=== PATIENT | male | born 1960 | race Caucasian/White ===

== ENCOUNTER 2016-09-29 14:05 | Emergency (ER) | payer MEDICAID, OTHER ==
[~2016-09-29 14:05] MED LIST: ALPR1TAB3 PO; CITA40TA4 PO; MIRT45TA PO
[2016-09-29 14:10] VITALS: PULSE 87; RESP 20; TEMP 98.3; O2SAT 95
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
== END 2016-09-29 15:36 | disposition home or self-care (01) ==
LOC: NEPB 14:05
DX: Z48.02 Encounter for removal of sutures (principal); Z72.0 Tobacco use; S61.512A Laceration without foreign body of left wrist, initial encounter; S61.511A Laceration without foreign body of right wrist, initial encounter; S21.112A Laceration without foreign body of left front wall of thorax without penetration into thoracic cavity, initial encounter; X78.1XXA Intentional self-harm by knife, initial encounter
CPT/HCPCS: 99281

== ENCOUNTER 2017-07-14 11:50 | Emergency (ER) | payer SELFPAY ==
[2017-07-14 11:51] VITALS: BP 129/80; PULSE 110; RESP 16; TEMP 98.4; O2SAT 97
--- NOTE | 2017-07-14 12:29 | PD ---
HPI Chief Complaint: Musculoskeletal Complaint Time Seen by Provider: 12:11 Travel History International Travel<30 days: No Contact w/Intl Traveler<30days: No History of Present Illness HPI 56-year-old male presents to emergency department with right ankle pain for 2-3 days. Patient states that his right ankle has been tender over the anterior aspect of the ankle that increases with movement and decreases with rest. Patient states that it feels aching especially with walking. Patient says that the aching is mild. He has limited range of motion secondary to pain. States he may also have occasional tingling of the area but denies numbness. Patient denies new footwear or history of ankle injuries. Patient denies trauma, history of gout. States he has been using Aleve for his pain without significant relief. Patient has a history depression and is on multiple medications for this. Patient denies recent travel, surgeries, fractures, or blood disorders. Patient does not have a primary care physician currently. PFSH Past Medical History Anxiety: Yes Depression: Yes Diminished Hearing: No Tetanus Vaccination: < 5 Years Past Surgical History Other Surgery: Yes (HERNIA, VASECTOMY) Social History Alcohol Use: No (26 YRS IN RECOVERY) Tobacco Use: Yes Substance Use: No Allergies-Medications (Allergen,Severity, Reaction): Coded Allergies: iodine (Unverified Allergy, Intermediate, facial and throat swelling , ) potassium iodide (Unverified Allergy, Intermediate, facial and throat swelling , 03/09/17) povidone-iodine (Unverified Allergy, Intermediate, facial and throat swelling , 03/09/17) sodium iodide (Unverified Allergy, Intermediate, facial and throat swelling , 03/09/17) sodium iodide (Unverified Allergy, Intermediate, facial and throat swelling , 03/09/17) Reported Meds & Prescriptions Reported Meds & Active Scripts Active Reported Mirtazapine 45 Mg Tab 45 Mg PO HS Citalopram (Citalopram Hydrobromide) 40 Mg Tab 40 Mg PO DAILY Alprazolam 1 Mg Tab 1 Mg PO Q6H PRN Review of Systems Except as stated in HPI: all other systems reviewed are Neg Physical Exam Narrative GENERAL: Well-nourished, well-developed patient. SKIN: Focused skin assessment warm/dry. HEAD: Normocephalic. EYES: No scleral icterus. No injection or drainage. NECK: Supple, trachea midline. No JVD or lymphadenopathy. CARDIOVASCULAR: Regular rate and rhythm without murmurs, gallops, or rubs. RESPIRATORY: Breath sounds equal bilaterally. No accessory muscle use. MUSCULOSKELETAL: No cyanosis, or edema. Right ankle-TTP over anterior talofibular ligaments. No evidence of trauma. Skin intact. No erythema or edema. Limited range of motion with flexion secondary to pain. Neurovascularly intact. BACK: Nontender without obvious deformity. No CVA tenderness. Data Data Last Documented VS Vital Signs Date Time Temp Pulse Resp B/P (MAP) Pulse Ox O2 Delivery O2 Flow Rate FiO2 07/14/17 11:51 98.4 110 16 129/80 (96) 97 Orders Orders Ankle, Limited (Ap&Lat) (07/14/17 ) Support Splint (07/14/17 12:52) Ed Discharge Order (07/14/17 12:53) MDM Medical Decision Making Medical Screen Exam Complete: Yes Emergency Medical Condition: Yes Differential Diagnosis Right ankle sprain, strain, arthritis, fracture Narrative Course 56-year-old male presents to emergency department with right ankle pain for 2-3 days. Patient states that his right ankle has been tender over the anterior aspect of the ankle that increases with movement and decreases with rest. Patient states that it feels aching especially with walking. Patient says that the aching is mild. He has limited range of motion secondary to pain. States he may also have occasional tingling of the area but denies numbness. Patient denies new footwear or history of ankle injuries. Patient denies trauma, history of gout. States he has been using Aleve for his pain without significant relief. Patient has a history depression and is on multiple medications for this. Patient denies recent travel, surgeries, fractures, or blood disorders. Patient does not have a primary care physician currently. Vital signs stable Physical exam consistent with sprain versus strain. X-ray demonstrates no acute process. Stirrup splint applied. Advised patient to use RICE. Advised he rests the ankle. Patient given [employer]ent information. Advised to follow-up within 2-3 days. Advised to return to emergency department for worsening or persistent symptoms. Diagnosis Primary Impression: Ankle strain Qualified Codes: S96.911A - Strain of unspecified muscle and tendon at ankle and foot level, right foot, initial encounter Patient Instructions: Ankle Strain (ED), General Instructions Additional Instructions: Use ice or heat for symptom relief. He may use the stirrup splint when symptomatic. If symptoms persist or worsen, return to the emergency department. Follow up with your primary care physician within 2 days. Disposition: 01 DISCHARGE HOME Condition: Stable Fabi Nicole Jul 14, 2017 12:29
--- NOTE | 2017-07-14 12:50 | RADRPT ---
EXAM DATE/TIME: 07/14/2017 12:19 [facility] COMPARISON: No previous studies available for comparison. INDICATIONS : Right ankle pain x 4 days no known injury all pain on lateral side MEDICAL HISTORY : None. SURGICAL HISTORY : None. ENCOUNTER: Initial ACUITY: 1 day PAIN SCORE: 9/10 LOCATION: Right Ankle. FINDINGS: Two view examination was performed of the right ankle. The bony structures are in normal alignment. No evidence of fracture, dislocation, or soft tissue swelling. No radiopaque foreign bodies are see n. Bony mineralization is normal. CONCLUSION: 1. No acute findings. Tam Hunter MD on July 14, 2017 at 12:47 Board Certified Radiologist. This report was verified electronically.
== END 2017-07-14 13:04 | disposition home or self-care (01) ==
LOC: NEPK 11:50
DX: S96.911A Strain of unspecified muscle and tendon at ankle and foot level, right foot, initial encounter (principal); F32.9 Major depressive disorder, single episode, unspecified; F41.9 Anxiety disorder, unspecified; Z72.0 Tobacco use; Z79.899 Other long term (current) drug therapy; Z91.041 Radiographic dye allergy status; X58.XXXA Exposure to other specified factors, initial encounter; Y93.01 Activity, walking, marching and hiking
CPT/HCPCS: 29515; 73600; 99284; L1906

== ENCOUNTER 2017-07-18 13:55 | Emergency (ER) | payer SELFPAY ==
[2017-07-18 14:01] VITALS: BP 159/73; PULSE 99; RESP 20; TEMP 97.4; O2SAT 97
[2017-07-18] MEDS ORDERED: NABU1TAB37 PO (14:14)
[2017-07-18] MEDS ORDERED: ACETAMINOPHEN/HYDROcodone 325 MG/5 MG TAB PO ONE (14:15)
--- NOTE | 2017-07-18 14:26 | PD ---
HPI . Right ankle pain Chief Complaint: Injury Time Seen by Provider: 14:05 Travel History International Travel<30 days: No Contact w/Intl Traveler<30days: No Traveled to known affect area: No History of Present Illness HPI Patient presents to us with the chief complaint of right ankle pain. Onset was about a week ago. He was seen here on 07/14 for same x-rays done which were negative. He was discharged home with instructions to do RICE therapy. He states that he has been doing this without relief of his symptoms. He further states that Aleve is not relieving his symptoms. He states that now the pain radiates all the way up his leg to the thigh. He denies any paresthesias. He denies fever. He denies back pain. Pain is exacerbated by movement. Pain is rated severe. There has been no trauma. PFSH Past Medical History Anxiety: Yes Depression: Yes Diminished Hearing: No Tetanus Vaccination: < 5 Years Past Surgical History Other Surgery: Yes (HERNIA, VASECTOMY) Social History Alcohol Use: No (26 YRS IN RECOVERY) Tobacco Use: Yes Substance Use: No Allergies-Medications (Allergen,Severity, Reaction): Coded Allergies: iodine (Unverified Allergy, Intermediate, facial and throat swelling , ) potassium iodide (Unverified Allergy, Intermediate, facial and throat swelling , 07/18/17) povidone-iodine (Unverified Allergy, Intermediate, facial and throat swelling , 07/18/17) sodium iodide (Unverified Allergy, Intermediate, facial and throat swelling , 07/18/17) sodium iodide (Unverified Allergy, Intermediate, facial and throat swelling , 07/18/17) Reported Meds & Prescriptions Reported Meds & Active Scripts Active Nabumetone 500 Mg Tab 500 Mg PO BID Reported Mirtazapine 45 Mg Tab 45 Mg PO HS Citalopram (Citalopram Hydrobromide) 40 Mg Tab 40 Mg PO DAILY Alprazolam 1 Mg Tab 1 Mg PO Q6H PRN Review of Systems Except as stated in HPI: all other systems reviewed are Neg General / Constitutional: No: Fever, Chills Musculoskeletal: Positive: Myalgias, Arthralgias, Limited ROM Physical Exam Narrative GENERAL: Awake and alert. Tearful. SKIN: Warm and dry. HEAD: Normocephalic/atraumatic. EYES: Pupils are equal. Extraocular movements are intact. NECK: Normal range of motion. CARDIOVASCULAR: Regular rate and rhythm. RESPIRATORY: Nonlabored respirations. MUSCULOSKELETAL: His right lower extremity looks normal. There are no skin changes. There is no swelling. There is no bruising. There is no deformity. He complains bitterly with any palpation or movement of the ankle, knee or hip. NEUROLOGICAL: Nonfocal. PSYCHIATRIC: Appropriate mood and affect. Data Data Last Documented VS Vital Signs Date Time Temp Pulse Resp B/P (MAP) Pulse Ox O2 Delivery O2 Flow Rate FiO2 07/18/17 14:01 97.4 99 20 159/73 (101) 97 Orders Orders Ed Discharge Order (07/18/17 14:14) Acetamin-Hydrocod 325-5 Mg ([place] 5-325 (07/18/17 14:15) MDM Medical Decision Making Medical Screen Exam Complete: Yes Emergency Medical Condition: Yes Differential Diagnosis Differential diagnosis of joint pain includes but is not limited to arthritis, gout, sprain/strain, fracture, dislocation, bursitis Narrative Course This patient presents with right ankle pain which is been bothering him for a week. It is atraumatic. It is now radiating up his right leg. His exam is normal in that the leg looks normal with no swelling, no bruising, no change in skin color, no deformity. He has no concerning complaints such as fever, weakness or paresthesias. He does not have any back pain. I do not suspect a significant etiology for his symptoms. I will discharge him to home with a prescription for Relafen. I will give him [place] here. Follow up with his primary care provider for further evaluation as needed. Diagnosis Primary Impression: Right ankle pain Qualified Codes: M25.571 - Pain in right ankle and joints of right foot Referrals: [facility] Patient Instructions: General Instructions, Arthralgia (ED) Departure Forms: Tests/Procedures Scripts Nabumetone (Nabumetone) 500 Mg Tab 500 MG PO BID for Pain-Inflammation, #60 TAB 0 Refills Prov: Shelley Lawrence MD 07/18/17 Disposition: 01 DISCHARGE HOME Shelley Lawrence MD Jul 18, 2017 14:26
[2017-08-02] MEDS ORDERED: MOBI15TA PO (10:06)
== END 2017-07-18 14:26 | disposition home or self-care (01) ==
LOC: NEPD 13:55
DX: M25.571 Pain in right ankle and joints of right foot (principal); Z72.0 Tobacco use
CPT/HCPCS: 99283